=== PATIENT | female | born 1980 | race Caucasian/White ===

== ENCOUNTER 2017-11-02 11:32 | Emergency (ER) | payer OTHER, SELFPAY ==
[2017-11-02 11:33] VITALS: BP 144/95; PULSE 87; RESP 16; TEMP 36.9; O2SAT 99; BMI 26.6
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
[2017-11-02] MEDS: Ondansetron 4 MG/2 ML Vial IV (12:00)
[2017-11-02] MEDS: morphine 8 MG/ML Syringe IV (12:00)
[2017-11-02 12:03] LABS: Hematocrit 39.2 % (37-47); Hemoglobin 12.7 g/dl (12.0-15.0); Mean Corp Hgb Conc 32.4 g/gl (32-36); Mean Corpuscular Hgb 30.2 pg (27.0-32.0); Mean Corpuscular Volume 93.3 fL (81-99); Mean Platelet Vol. 10.1 fl (6.2-12.0); Platelet Count 367 K/mm3 (150-450); RBC Distribution Width SD 40.3 fl (35.1-43.9); White Blood Count 20.9 K/mm3 (4.4-11.0)
[2017-11-02 12:04] LABS: Scan Indicated on CBC? Y/N NO
[2017-11-02 12:07] VITALS: BP 141/92; PULSE 71; RESP 16; O2SAT 100
[2017-11-02 12:16] LABS: Anion Gap 7 (5-15); BUN 10 mg/dL (7-18); Calcium,Total 8.7 mg/dL (8.5-10.1); Chloride 104 mmol/L (98-107); Creatinine, Serum 0.72 mg/dL (0.55-1.02); EST Glomerular Filtration Rate 98 mL/min (>60); Est Glom Filt Rate - Afr Amer 119 mL/min (>60); Estimated Creatinine Clearance 98.13 ml/min; Glucose 82 mg/dL (74-106); Sodium Level 139 mmol/L (136-145)
[2017-11-02 12:22] LABS: Pregnancy, Serum, hCG Quali. NEGATIVE Negative (0-9 Nonpreg)
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
[2017-11-02 12:32] VITALS: BP 112/78; PULSE 77; RESP 14; O2SAT 99
[2017-11-02 14:36] VITALS: BP 112/67; PULSE 86; O2SAT 98
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
[2017-11-02 15:01] VITALS: BP 112/67; PULSE 89; RESP 16; O2SAT 98
== END 2017-11-02 15:03 | disposition home or self-care (01) ==
PROVIDERS: Emergency Provider Emergency Medicine
DX: S20.212A Contusion of left front wall of thorax, initial encounter (principal); S30.1XXA Contusion of abdominal wall, initial encounter; S80.12XA Contusion of left lower leg, initial encounter; S80.11XA Contusion of right lower leg, initial encounter; V59.49XA Driver of pick-up truck or van injured in collision with other motor vehicles in traffic accident, initial encounter; Y93.89 Activity, other specified; Y92.9 Unspecified place or not applicable; E66.9 Obesity, unspecified; Z68.26 Body mass index [BMI] 26.0-26.9, adult
CPT/HCPCS: 71046; 73590; 74177; 80048; 84703; 85027; 96374; 96375; 99284; Q9967; A4216; J2405